=== PATIENT | male | born 1995 | race Caucasian/White ===

== ENCOUNTER 2017-10-16 03:35 | Emergency (ER) | payer OTHER ==
[~2017-10-16] VITALS: Ht 167.6 cm; Wt 102.6 kg
[2017-10-16] MEDS ORDERED: NORCO 5/3251 TABLET PO (04:21)
[2017-10-16] MEDS ORDERED: CLEOCIN300 MG PO (04:21)
[2017-10-16 04:32] VITALS: BP 158/114
== END 2017-10-16 04:33 | disposition home or self-care (01) ==
LOC: EXP 03:35 → EME 03:35 → EXP 04:33
PROC: 3E0T3BZ Introduction of Anesthetic Agent into Peripheral Nerves and Plexi, Percutaneous Approach (ICD-10-PCS; principal; 2017-10-16)
DX: K08.89 Other specified disorders of teeth and supporting structures (principal)
CPT/HCPCS: 99281; 99283